=== PATIENT | female | born 1970 | race Two or more races ===

== ENCOUNTER 2019-07-14 23:17 | Inpatient (IN) | payer OTHER ==
[~2019-07-14] VITALS: Ht 154.9 cm; Wt 61.4 kg
[2019-07-14] MEDS ORDERED: ALPR2TAB97 PO (23:31)
[2019-07-14 23:54] LABS: EOSINOPHILS % (AUTO) 2.2 % (1.0-6.0); HEMATOCRIT 27.1 % (36-46); HEMOGLOBIN 8.3 g/dL (12.0-16.0); LYMPHOCYTES # (AUTO) 3.9 K/uL (1.0-4.8); LYMPHOCYTES % (AUTO) 31.3 % (22.0-44.0); MEAN CORPUSCULAR HEMOGLOBIN 20.1 pg (26.0-34.0); MEAN CORPUSCULAR HGB CONC 30.4 G/dL (31.0-37.0); MEAN CORPUSCULAR VOLUME 66 fL (80-100); MONOCYTES # (AUTO) 0.7 K/uL (0.1-1.0); MONOCYTES % (AUTO) 5.5 % (2.0-9.0); NEUTROPHILS # (AUTO) 7.5 K/uL (1.8-7.7); PLATELET COUNT (AUTO) 579 K/uL (150-450); RED BLOOD CELL COUNT(AUTO) 4.11 MIL/uL (4.00-5.20); RED CELL DISTRIBUTION WIDTH 19.2 % (11.5-14.5)
[2019-07-15 00:06] LABS: ANION GAP 10 mmol/L (8-16); CALCIUM, TOTAL 8.8 mg/dL (8.8-10.5); CARBON DIOXIDE 29 mmol/L (22-29); CHLORIDE 102 mmol/L (98-107); CREATININE 0.67 mg/dL (0.60-1.30); GLOMERULAR FILTR. RATE CALC > 60 mL/min (>60); GLUCOSE,RANDOM 111 mg/dL (70-110); POTASSIUM 3.7 mmol/L (3.5-5.1); SODIUM SERUM 141 mmol/L (136-145); UREA NITROGEN, BLOOD 5 mg/dL (7-18)
[2019-07-15 00:13] LABS: ALANINE AMINOTRANSFERASE 30 U/L (12-78); ALBUMIN 3.6 g/dL (3.4-5.0); ALKALINE PHOSPHATASE 71 U/L (46-116); ASPARTATE AMINOTRANSFERASE 16 U/L (15-37); BILIRUBIN,TOTAL 0.3 mg/dL (0.1-1.0); TOTAL PROTEIN, SERUM 7.5 g/dL (6.4-8.2)
[2019-07-15 00:14] LABS: ACETAMINOPHEN < 2 mcg/mL (10-30)
[2019-07-15 00:45] LABS: SALICYLATE < 2.8 mg/dL (2.8-20.0)
[2019-07-15] MEDS ORDERED: ZOLPIDEM TARTRATE 10 MG TABLET PO PRN (04:15)
[2019-07-15] MEDS ORDERED: HALOPERIDOL 5 MG TABLET PO PRN (04:15)
[2019-07-15] MEDS ORDERED: LORazepam 2 MG TABLET PO PRN (04:15)
[2019-07-15 09:29] VITALS: BP 122/78
[2019-07-15 11:45] VITALS: BP 122/78
[2019-07-15 16:55] VITALS: BP 114/80
[2019-07-16 00:20] VITALS: BP 132/72
[2019-07-16 08:45] VITALS: BP 131/74
[2019-07-16 08:55] LABS: CHOL/HDL RATIO 4.1 (3.9-5.7)
[2019-07-16] MEDS ORDERED: MAGNESIUM HYDROXIDE SUSPENSION 30 ML UDCUP PO PRN (13:15)
[2019-07-16] MEDS: DULoxetine HCL 60 MG CAPSULE PO SCH (13:23)
[2019-07-16] MEDS: BusPIRone HCL 10 MG TABLET PO SCH (16:00)
[2019-07-16 16:46] VITALS: BP 120/75
[2019-07-17 01:15] VITALS: BP 127/70
[2019-07-17 08:06] VITALS: BP 122/82
[2019-07-17] MEDS: DULoxetine HCL 60 MG CAPSULE PO SCH (08:08)
[2019-07-17] MEDS: BusPIRone HCL 10 MG TABLET PO SCH (08:08)
[2019-07-17] MEDS ORDERED: DULO60CA44 PO (10:26)
[2019-07-17] MEDS ORDERED: BUSP10TA23 PO (10:26)
== END 2019-07-17 13:50 | disposition home or self-care (01) | DRG 881 ==
LOC: EMS 23:17 → B2S 07-15 05:28
PROVIDERS: ADMIT Psychiatry & Neurology Child & Adolescent Psychiatry; ATTEND Psychiatry & Neurology Child & Adolescent Psychiatry
DX: F32.9 Major depressive disorder, single episode, unspecified (principal); R45.851 Suicidal ideations; D64.9 Anemia, unspecified; D72.829 Elevated white blood cell count, unspecified; F10.10 Alcohol abuse, uncomplicated; G47.00 Insomnia, unspecified; F41.9 Anxiety disorder, unspecified; F19.10 Other psychoactive substance abuse, uncomplicated; Z88.0 Allergy status to penicillin
CPT/HCPCS: G0480; G0481